=== PATIENT | male | born 1985 | race Caucasian/White ===

== ENCOUNTER 2022-10-19 11:51 | Inpatient (IN) | payer OTHER ==
[~2022-10-19] VITALS: Ht 180.3 cm; Wt 102.1 kg
[2022-10-19 12:26] LABS: CLARITY,URINE SLIGHTLY CLOUDY (Clear); COLOR,URINE YELLOW (Yellow); GLUCOSE, URINE NEGATIVE (Neg); KETONES,URINE TRACE mg/dl (Neg); LEUKOCYTE ESTERASE ,URINE NEGATIVE (Neg); NITRITES, URINE NEGATIVE (Neg); OCCULT BLOOD,URINE NEGATIVE (Neg); PROTEIN,URINE NEGATIVE (Neg); UROBILINOGEN,URINE 0.2 E.U/dL (0.2-1.0)
[2022-10-19 12:33] LABS: UA COLLECTION TYPE CLN CATCH MIDSTREAM
[2022-10-19 13:02] LABS: MUCUS STRANDS MANY /LPF (Neg); SQUAMOUS EPITHELIAL CELL,UR FEW /LPF (FEW)
[2022-10-19 13:04] LABS: BACTERIA,URINE 1+ /HPF (Neg); RBC,URINE 0-2 /HPF (0-2); WBC,URINE 0-4 /HPF (0-4)
[2022-10-19 13:19] LABS: ALANINE AMINOTRANSFERASE 36 U/L (12-78); ALBUMIN 3.8 G/DL (3.4-5.0); ALKALINE PHOSPHATASE 75 IU/L (46-116); ANION GAP 8 (8-16); ASPARTATE AMINO TRANSFERASE 21 U/L (10-37); BILIRUBIN,TOTAL 0.6 MG/DL (0.1-1.0); BLOOD UREA NITROGEN 16 MG/DL (7-18); BUN/CREATININE RATIO 19.3 (5.4-32.0); CALCIUM 9.2 MG/DL (8.5-10.1); CHLORIDE 104 MMOL/L (99-107); CREATININE 0.83 MG/DL (0.60-1.10); GLUCOSE 87 MG/DL (70-104); POTASSIUM 3.8 MMOL/L (3.5-5.1); SODIUM 139 MMOL/L (135-145); TOTAL CARBON DIOXIDE 27.4 MMOL/L (24-32); TOTAL PROTEIN 7.7 G/DL (6.4-8.2); eGFR > 90 ML/MIN
[2022-10-19 13:22] LABS: BASOPHILS % (AUTO) 0.6 % (0-1); EOSINOPHILS # (AUTO) 0.6 X10'3 (0-0.9); HEMATOCRIT 45.7 % (42.0-52.0); HEMOGLOBIN 15.4 g/dl (14.0-17.9); LYMPHOCYTES # (AUTO) 1.9 X10'3 (1.1-4.8); LYMPHOCYTES % (AUTO) 24.1 % (21-51); MEAN CORPUSCULAR HGB CONC 33.6 g/dL (33.0-36.5); MEAN CORPUSCULAR VOLUME 89.3 FL (78-98); MEAN PLATELET VOLUME 7.7 FL (7.4-10.4); MONOCYTES # (AUTO) 0.6 X10'3 (0-0.9); NEUTROPHILS # (AUTO) 4.9 X10'3 (1.8-7.7); NEUTROPHILS % (AUTO) 61.3 % (42-75); PLATELET COUNT 294 X10'3 (140-440); RED BLOOD COUNT 5.12 X10'6 (4.70-6.10)
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
[2022-10-19 14:38] LABS: URINE AMPHETAMINE SCREEN POSITIVE (Neg); URINE BARBITUATE SCREEN NEGATIVE (Neg); URINE BENZODIAZEPINES SCREEN NEGATIVE (Neg); URINE CANNABINOID SCREEN NEGATIVE (Neg); URINE COCAINE SCREEN NEGATIVE (Neg); URINE METHADONE SCREEN NEGATIVE (Neg); URINE OPIATE SCREEN NEGATIVE (Neg); URINE PHENCYCLIDINE SCREEN NEGATIVE (Neg)
[2022-10-19] MEDS ORDERED: hydrOXYzine 25 MG tablet PO ONE (15:50)
[2022-10-19] MEDS ORDERED: AMPH25CA PO (17:02)
[2022-10-19] MEDS ORDERED: AMPH10TA2 PO (17:02)
[2022-10-19] MEDS ORDERED: SEMA1PEN3 SQ (17:02)
[2022-10-19] MEDS ORDERED: PROP20TA6 PO (17:03)
[2022-10-19] MEDS ORDERED: MULT-1085 PO (17:07)
[2022-10-19] MEDS ORDERED: CETI-90 PO (17:07)
[2022-10-19] MEDS ORDERED: OMEG-5 PO (17:07)
[2022-10-19] MEDS ORDERED: CHOL50004 PO (17:07)
[2022-10-19] MEDS ORDERED: ELDE350C PO (17:07)
[2022-10-19] MEDS ORDERED: ASCO100T12 PO (17:07)
--- NOTE | 2022-10-19 18:24 | NUR ---
REPORT TO LORENA GARCIA FOR CONTINUATION OF CARE.
--- NOTE | 2022-10-19 21:29 | NUR ---
comfirmation of packet sent to [facility]
--- NOTE | 2022-10-19 21:48 | NUR ---
The patient's mother called and was agitated and demanding that the patient be placed in a psychiatric hospital immediately. Spoke with the patient and he does want his mother involved in his treatment.
[2022-10-19] MEDS ORDERED: Melatonin 3mg tablet PO ONE (21:57)
--- NOTE | 2022-10-20 06:59 | NUR ---
Patient is sleeping in bed. Respirations are even and nonlabored.
--- NOTE | 2022-10-20 08:26 | NUR ---
is here at bedside, offering support to her .
[2022-10-20] MEDS ORDERED: hydrOXYzine 25 MG tablet PO ONE ×2 (10:15→20:38)
[2022-10-20] MEDS ORDERED: propranolol 10mg tablet PO PRN (10:20)
[2022-10-20] MEDS ORDERED: DEXTROAMPHETAMINE PO SCH ×2 (10:34→10:49)
[2022-10-20] MEDS ORDERED: AMPHETAMINE PO SCH ×2 (10:34→10:49)
[2022-10-20] MEDS: cholecalciferol (vitamin D3) 1,000 unit (25mcg) tablet PO SCH (10:56)
[2022-10-20] MEDS: cetirizine 10mg tablet PO SCH (10:56)
[2022-10-20] MEDS: multivitamins, therapeutics tablet PO SCH (10:56)
[2022-10-20] MEDS: OMEGA-3/DHA/EPA/FISH OIL 1 EACH CAPSULE.DR PO SCH (10:56)
--- NOTE | 2022-10-20 12:32 | NUR ---
[facility], they are going to place him on 5150.
[2022-10-20] MEDS ORDERED: dextroamphetamine/amphetamine 10mg tablet PO SCH (14:00)
--- NOTE | 2022-10-20 14:09 | NUR ---
Received call from [facility]. Patient has been accepted at [facility], patient's notified.
--- NOTE | 2022-10-20 15:03 | NUR ---
Patient is being discharged to [facility] at this time. Patient verifies SI. went home.
[2022-10-20 15:05] VITALS: BP 101/75
[2022-10-20] MEDS ORDERED: loperamide 2mg capsule PO PRN (15:20)
[2022-10-20] MEDS ORDERED: magnesium hydroxide 30ml (MOM) UD suspension PO PRN (15:20)
[2022-10-20] MEDS ORDERED: acetaminophen 325mg tablet PO PRN ×2 (15:20)
--- NOTE | 2022-10-20 15:31 | NUR ---
Admit note: Pt admitted to Behavioral health today on a 5150 for DTS at 1505 from our ER. Tomi endorses worsening suicidal ideation with several detailed plans to kill himself. Pt has history of depression and ADHD.
--- NOTE | 2022-10-20 16:57 | NUR ---
Vicky Varela [phone] active in pt care, pt allowing release of information to her.
--- NOTE | 2022-10-20 18:17 | NUR ---
Pt approached tech with his plastic fork during dinner, stating "Im not suppose to have this, I thought about using this to hurt myself." Plastic vick removed and diet order updated.
[2022-10-20 20:00] VITALS: BP 102/66
[2022-10-20] MEDS ORDERED: hydrOXYzine 25 MG tablet PO PRN (20:40)
[2022-10-21] MEDS: mag hydrox/Alum hydrox/simeth 30ml oral suspension PO PRN ×2 (00:48→22:08)
--- NOTE | 2022-10-21 05:03 | NUR ---
Progress Note: Problem: Pt admitted to Behavioral health today on a 5150 for DTS at 1505 from our ER. Tomi endorses worsening suicidal ideation with several detailed plans to kill himself. Pt has history of depression and ADHD. Interventions: 1:1 assessment, therapeutic conversation, active listening, ensured contract for safety, medication administration/education/monitoring, behavior monitoring and intervention as needed; anxiety management, provided distraction, redirection, positive reinforcement, and Q 15 minute safety checks. Response: Pt resting in bed at start of shift. Pt refused snack. 1:1 assessment at bedside. Pt denies AH/VH. Pt having SI. When asked how pt is feeling pt states apathetic. When asked why pt states Im angry so much I just want to pain to go away. Pt states he just want to sleep and that is the only time he does not think about killing himself. PRN Atarax, Imodium and Maalox administered for diarrhea this shift. Pt stayed in room all shift and slept through the night. Plan: Pt requires stabilization with medication adjustment and management in a safe and therapeutic environment.
[2022-10-21 08:07] LABS: CHOL/HDL RATIO 4.1 (0.00-4.99); CHOLESTEROL 175 MG/DL (0-200); HDL CHOLESTEROL 43 MG/DL (35-60); LDL CHOLESTEROL 112 MG/DL (50-100); TRIGLYCERIDES 138 MG/DL (20-135)
[2022-10-21] MEDS: cetirizine 10mg tablet PO SCH (08:32)
[2022-10-21] MEDS: multivitamins, therapeutics tablet PO SCH (08:32)
[2022-10-21] MEDS: OMEGA-3/DHA/EPA/FISH OIL 1 EACH CAPSULE.DR PO SCH (08:32)
[2022-10-21] MEDS: cholecalciferol (vitamin D3) 1,000 unit (25mcg) tablet PO SCH (08:32)
[2022-10-21 08:34] LABS: HEMOGLOBIN A1C 4.7 % (4.5-6.2)
[2022-10-21] MEDS: DEXTROAMPHETAMINE PO SCH (09:57)
[2022-10-21] MEDS: AMPHETAMINE PO SCH (09:57)
[2022-10-21] MEDS: dextroamphetamine/amphetamine 5mg tablet PO SCH (14:15)
[2022-10-21] MEDS ORDERED: QUEtiapine 25mg tablet PO ONE ×2 (15:10→15:20)
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
--- NOTE | 2022-10-21 16:52 | NUR ---
Progress Note: Problem: Pt admitted to Behavioral health today on a 5150 for DTS at 1505 from our ER. Tomi endorses worsening suicidal ideation with several detailed plans to kill himself. Pt has history of depression and ADHD. Interventions: 1:1 assessment, therapeutic conversation, active listening, ensured contract for safety, medication administration/education/monitoring, behavior monitoring and intervention as needed; anxiety management, provided distraction, redirection, positive reinforcement, and Q 15 minute safety checks. Response: Patient received resting quietly in bed. Cooperative with assessment and medications. Appears depressed and downcast. Joins his peers for meals in the community room and interacts appropriately with peers and staff. In the morning the patient wears his hair over his face. Has a visitor today which appears to go well. In the afternoon the patient is noted with his hair pulled back. He is guarded with this nurse but spends time talking with the delinquency prevention social worker. Continues to endorse SI related to recent personal stressors. In the afternoon the patient expresses concern that he might hurt himself if left alone in his room and is agreeable to spending time in the observation room. Plan: Pt requires stabilization with medication adjustment and management in a safe and therapeutic environment.
[2022-10-21 20:00] VITALS: BP 106/69
--- NOTE | 2022-10-22 04:09 | NUR ---
Progress Note: Problem: Pt admitted to Behavioral health today on a 5150 for DTS at 1505 from our ER. Tomi endorses worsening suicidal ideation with several detailed plans to kill himself. Pt has history of depression and ADHD. Interventions: 1:1 assessment, therapeutic conversation, active listening, ensured contract for safety, medication administration/education/monitoring, behavior monitoring and intervention as needed; anxiety management, provided distraction, redirection, positive reinforcement, and Q 15 minute safety checks. Response: Pt resting in bed in the observation room at the start of shift. Pt came out for snack. 1:1 assessment at bedside. Pt denies AH/VH. Pt continues to having SI. When asked how he is feeling pt states emotions are getting worse. This RN asked him why he is in the observation room pt states because it is safer for me, I see things all over my room and it gives me ideas I can use as a weapon. PRN Atarax and Maalox administered this shift. Pt stayed in room and came out to ask for PRNs pt slept through the night once he went to bed. Plan: Pt requires stabilization with medication adjustment and management in a safe and therapeutic environment.
[2022-10-22 08:00] VITALS: BP 107/73
[2022-10-22] MEDS: cholecalciferol (vitamin D3) 1,000 unit (25mcg) tablet PO SCH (08:14)
[2022-10-22] MEDS: OMEGA-3/DHA/EPA/FISH OIL 1 EACH CAPSULE.DR PO SCH (08:14)
[2022-10-22] MEDS: cetirizine 10mg tablet PO SCH (08:14)
[2022-10-22] MEDS: multivitamins, therapeutics tablet PO SCH (08:14)
[2022-10-22] MEDS: DEXTROAMPHETAMINE PO SCH (08:52)
[2022-10-22] MEDS: AMPHETAMINE PO SCH (08:52)
[2022-10-22] MEDS ORDERED: QUEtiapine 25mg tablet PO ONE (14:20)
[2022-10-22] MEDS: dextroamphetamine/amphetamine 5mg tablet PO SCH (15:04)
--- NOTE | 2022-10-22 15:19 | NUR ---
Met with Tomi for about an hour. He is still really struggling and having thoughts of harming himself. He reported very poor sleep last night. He reported he has been having thoughts of suicide since Tuesday. He reported he is really struggling and that playing cards or some sort of game helps to distract him. He was tearful at times. He presents with significant distress. Explained 5150 and 5250 process. He reported he should not be placed on voluntary because he would leave and kill himself. Explained brainspotting and suggested we meet again next week and work on his trauma, he was agreeable to this. Called his , Nathalie (ph# [phone]), to check in with her and answer any questions. Asked her to bring in Tomi's chess set at his request. She reported she is going to bring him some belongings and games tomorrow. She is also going to bring his Ozempic rx as it is due tomorrow. LLOYD Treviño
--- NOTE | 2022-10-22 16:51 | NUR ---
Progress Note: Problem: Pt admitted to Behavioral health today on a 5150 for DTS at 1505 from our ER. Tomi endorses worsening suicidal ideation with several detailed plans to kill himself. Pt has history of depression and ADHD. Interventions: 1:1 assessment, therapeutic conversation, active listening, ensured contract for safety, medication administration/education/monitoring, behavior monitoring and intervention as needed; anxiety management, provided distraction, redirection, positive reinforcement, and Q 15 minute safety checks. Response: Patient received resting quietly in bed. Cooperative with assessment and medications. Continues to endorse suicidal ideation. Appears downcast. Wears his hair over his face. Eats meals in the community room and interacts appropriately with staff and peers. Patient states his room change has been helpful for him. Complains that yesterdays Seroquel was ineffective. increases Seroquel which pt tolerates without issue. Plan: Pt requires stabilization with medication adjustment and management in a safe and therapeutic environment.
--- NOTE | 2022-10-22 19:03 | NUR ---
received report. Introduced myself to patient while he was walking in hallway. He spoke in a very quiet voice and would nod or shake his head with communication. Asked if I could do anything for him, no needs at this time. He got a piece of candy from rn hemodialysis charge
[2022-10-22 20:00] VITALS: BP 102/63
[2022-10-22] MEDS: quetiapine 100mg tablet PO SCH (20:14)
[2022-10-22] MEDS: mag hydrox/Alum hydrox/simeth 30ml oral suspension PO PRN (20:23)
--- NOTE | 2022-10-23 01:46 | NUR ---
Progress Note: Problem: Pt admitted to Behavioral health today on a 5150 for DTS at 1505 from our ER. Tomi endorses worsening suicidal ideation with several detailed plans to kill himself. Pt has history of depression and ADHD. Interventions: 1:1 assessment, therapeutic conversation, active listening, ensured contract for safety, medication administration/education/monitoring, behavior monitoring and intervention as needed; anxiety management, provided distraction, redirection, positive reinforcement, and Q 15 minute safety checks. Response: Cooperative with assessment and medications. Appears downcast. Wears his hair over his face. Interacts appropriately with staff and peers. Complains of indigestion, Maalox administered Plan: Pt requires stabilization with medication adjustment and management in a safe and therapeutic environment.
[2022-10-23 07:27] VITALS: BP 103/67
[2022-10-23] MEDS ORDERED: SEMAGLUTIDE 1 MG/0.75 ML SQ SCH (08:00)
[2022-10-23] MEDS: DEXTROAMPHETAMINE PO SCH (08:28)
[2022-10-23] MEDS: OMEGA-3/DHA/EPA/FISH OIL 1 EACH CAPSULE.DR PO SCH (08:28)
[2022-10-23] MEDS: AMPHETAMINE PO SCH (08:28)
[2022-10-23] MEDS: cholecalciferol (vitamin D3) 1,000 unit (25mcg) tablet PO SCH (08:28)
[2022-10-23] MEDS: cetirizine 10mg tablet PO SCH (08:29)
[2022-10-23] MEDS: multivitamins, therapeutics tablet PO SCH (08:29)
[2022-10-23] MEDS: sertraline 50mg tablet PO SCH (08:29)
--- NOTE | 2022-10-23 09:56 | NUR ---
Initial: Pt admit with depression with SI. Currently on a regular diet and eating well, documented with 100% PO intake meeting estimated nutrient needs. LBM 10/22, documented with diarrhea. Pt receiving Imodium PRN. No nutrition intervention implemented at this time. Will continue to follow. Recommendations: 1) Continue regular diet 2) Bowel care PRN 3) Weekly scaled weights Addendum: 10/23/22 at [address] Amended: Links added.
[2022-10-23] MEDS: dextroamphetamine/amphetamine 5mg tablet PO SCH (14:00)
--- NOTE | 2022-10-23 17:05 | NUR ---
Progress Note: Problem: Pt admitted to Behavioral health today on a 5150 for DTS at 1505 from our ER. Tomi endorses worsening suicidal ideation with several detailed plans to kill himself. Pt has history of depression and ADHD. Interventions: 1:1 assessment, therapeutic conversation, active listening, ensured contract for safety, medication administration/education/monitoring, behavior monitoring and intervention as needed; anxiety management, provided distraction, redirection, positive reinforcement, and Q 15 minute safety checks. Response: Patient received resting quietly in bed. Cooperative with assessment and medications. Eats meals in the community room and interacts appropriately with staff and peers. Continues to endorse feeling of depression and thoughts of suicide. 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 Plan: Pt requires stabilization with medication adjustment and management in a safe and therapeutic environment.
[2022-10-23 19:44] VITALS: BP 126/82
[2022-10-23] MEDS: mag hydrox/Alum hydrox/simeth 30ml oral suspension PO PRN (20:14)
[2022-10-23] MEDS: quetiapine 100mg tablet PO SCH (20:14)
--- NOTE | 2022-10-24 00:25 | NUR ---
Progress Note: Problem: Pt admitted to Behavioral health today on a 5150 for DTS at 1505 from our ER. Tomi endorses worsening suicidal ideation with several detailed plans to kill himself. Pt has history of depression and ADHD. Interventions: 1:1 assessment, therapeutic conversation, active listening, ensured contract for safety, medication administration/education/monitoring, behavior monitoring and intervention as needed; anxiety management, provided distraction, redirection, positive reinforcement, and Q 15 minute safety checks. Response: Pt up in group room at start of shift. Having an animated conversation with a female pt. He describes his day as "so-so" He says when he leaves here he will either go home or end his life. He still has a plan for Suicide. He says the medications he is getting here are helping him feel better because they help him sleep. Took his HS Seroquel and PRN Maalox. He agreed to let staff know if he has problems sleeping. Pt sleeping at this time. Plan: Pt requires stabilization with medication adjustment and management in a safe and therapeutic environment.
[2022-10-24 08:01] VITALS: BP 93/57
[2022-10-24] MEDS: multivitamins, therapeutics tablet PO SCH (08:08)
[2022-10-24] MEDS: cetirizine 10mg tablet PO SCH (08:08)
[2022-10-24] MEDS: sertraline 50mg tablet PO SCH (08:08)
[2022-10-24] MEDS: cholecalciferol (vitamin D3) 1,000 unit (25mcg) tablet PO SCH (08:08)
[2022-10-24] MEDS: OMEGA-3/DHA/EPA/FISH OIL 1 EACH CAPSULE.DR PO SCH (08:08)
[2022-10-24] MEDS: DEXTROAMPHETAMINE PO SCH (08:49)
[2022-10-24] MEDS: AMPHETAMINE PO SCH (08:49)
[2022-10-24] MEDS: cloNIDine 0.1 mg tablet PO PRN ×2 (14:19→20:22)
[2022-10-24] MEDS: dextroamphetamine/amphetamine 5mg tablet PO SCH (14:19)
[2022-10-24] MEDS ORDERED: sertraline 25mg tablet PO ONE (15:45)
--- NOTE | 2022-10-24 18:09 | NUR ---
Nursing Progress Note: Problem: Pt admitted to Behavioral health today on a 5150 for DTS at 1505 from our ER. Tomi endorses worsening suicidal ideation with several detailed plans to kill himself. Pt has history of depression and ADHD. Interventions: 1:1 assessment, therapeutic conversation, active listening, ensured contract for safety, medication administration/education/monitoring, behavior monitoring and intervention as needed; anxiety management, provided distraction, redirection, positive reinforcement, and Q 15 minute safety checks. Response: Patient received resting quietly in bed. Cooperative with assessment and medications. Eats meals in the community room and interacts appropriately with staff and peers. Continues to endorse feelings of depression and SI. Complains of increased anxiety in the afternoon. PRN Clonidine is given with good effect. Patient also spends time talking to one of his peers which he verbalizes was helpful for his anxiety. Patient visits with his during visitation which appears to go well. Patient is noted playing games and watching movies in the community room for most of the day. Plan: Pt requires stabilization with medication adjustment and management in a safe and therapeutic environment.
[2022-10-24 20:00] VITALS: BP 126/82
[2022-10-24] MEDS: quetiapine 100mg tablet PO SCH (20:16)
[2022-10-24] MEDS: mag hydrox/Alum hydrox/simeth 30ml oral suspension PO PRN (20:16)
--- NOTE | 2022-10-25 01:42 | NUR ---
Nursing Progress Note: Problem: Pt admitted to Behavioral health today on a 5150 for DTS at 1505 from our ER. Tomi endorses worsening suicidal ideation with several detailed plans to kill himself. Pt has history of depression and ADHD. Interventions: 1:1 assessment, therapeutic conversation, active listening, ensured contract for safety, medication administration/education/monitoring, behavior monitoring and intervention as needed; anxiety management, provided distraction, redirection, positive reinforcement, and Q 15 minute safety checks. Response: Tomi up on unit at start of shift. He was very concerned when another pt moved into his room. The other pt was agitated but medicated and became calmer. Staff reassured Tomi that he was close to the Nurses Station and staff would frequently monitor the situation. He was encouraged to report any problems to staff. Tomi was satisfied went to group room and read aloud to other pts. He did not report any further problems with his new roommate. He said he had a good day. He is using some "tools" to distract himself from thinking about suicide. Took HS meds and PRN Clonidine. Sleeping at this time. Plan: Pt requires stabilization with medication adjustment and management in a safe and therapeutic environment.
[2022-10-25 07:12] VITALS: BP 97/59
[2022-10-25] MEDS: AMPHETAMINE PO SCH (08:19)
[2022-10-25] MEDS: sertraline 50mg tablet PO SCH (08:19)
[2022-10-25] MEDS: OMEGA-3/DHA/EPA/FISH OIL 1 EACH CAPSULE.DR PO SCH (08:19)
[2022-10-25] MEDS: multivitamins, therapeutics tablet PO SCH (08:19)
[2022-10-25] MEDS: DEXTROAMPHETAMINE PO SCH (08:19)
[2022-10-25] MEDS: cholecalciferol (vitamin D3) 1,000 unit (25mcg) tablet PO SCH (08:19)
[2022-10-25] MEDS: cetirizine 10mg tablet PO SCH (08:20)
[2022-10-25] MEDS: cloNIDine 0.1 mg tablet PO PRN ×2 (12:17→18:45)
--- NOTE | 2022-10-25 13:57 | NUR ---
Nursing Progress Note: Problem: Pt admitted to Behavioral health today on a 5150 for DTS at 1505 from our ER. Tomi endorses worsening suicidal ideation with several detailed plans to kill himself. Pt has history of depression and ADHD. Interventions: 1:1 assessment, therapeutic conversation, active listening, ensured contract for safety, medication administration/education/monitoring, behavior monitoring and intervention as needed; anxiety management, provided distraction, redirection, positive reinforcement, and Q 15 minute safety checks. Response: Patient received resting quietly in bed. Cooperative with assessment and medications. Continues to endorse feelings of depression and suicidal ideation. Joins his peers in the community room for meals and interacts appropriately. Noted playing games and watching TV with peers. Socializes with select peers. Visits with his during visitation which appears to go well. PRN Clonidine given for anxiety with good effect. Plan: Pt requires stabilization with medication adjustment and management in a safe and therapeutic environment.
[2022-10-25] MEDS: dextroamphetamine/amphetamine 5mg tablet PO SCH (14:24)
[2022-10-25] MEDS: mag hydrox/Alum hydrox/simeth 30ml oral suspension PO PRN (17:52)
[2022-10-25 19:42] VITALS: BP 128/79
[2022-10-25] MEDS: quetiapine 100mg tablet PO SCH (21:58)
--- NOTE | 2022-10-26 00:55 | NUR ---
Nursing Progress Note: Problem: Pt admitted to Behavioral health today on a 5150 for DTS at 1505 from our ER. Tomi endorses worsening suicidal ideation with several detailed plans to kill himself. Pt has history of depression and ADHD. Interventions: 1:1 assessment, therapeutic conversation, active listening, ensured contract for safety, medication administration/education/monitoring, behavior monitoring and intervention as needed; anxiety management, provided distraction, redirection, positive reinforcement, and Q 15 minute safety checks. Response: Pt in Group room playing [email or web address] with another pt at start of shift. He stayed in group room playing games and then reading aloud to another pt until he went to bed. PRN Clonidine given Per his request for anxiety with good effect. Pt is knowledgeable about his medications and his MDs plan to adjust them. Pts roommate became loud and agitated the pt was able to deal with it without becoming upset. Pt is sleeping at this time. Plan: Pt requires stabilization with medication adjustment and management in a safe and therapeutic environment.
[2022-10-26 07:55] VITALS: BP 108/72
[2022-10-26] MEDS: sertraline 50mg tablet PO SCH (08:05)
[2022-10-26] MEDS: cholecalciferol (vitamin D3) 1,000 unit (25mcg) tablet PO SCH (08:05)
[2022-10-26] MEDS: DEXTROAMPHETAMINE PO SCH (08:05)
[2022-10-26] MEDS: OMEGA-3/DHA/EPA/FISH OIL 1 EACH CAPSULE.DR PO SCH (08:05)
[2022-10-26] MEDS: AMPHETAMINE PO SCH (08:05)
[2022-10-26] MEDS: multivitamins, therapeutics tablet PO SCH (08:05)
[2022-10-26] MEDS: cetirizine 10mg tablet PO SCH (08:05)
[2022-10-26 08:50] VITALS: BP 108/72
[2022-10-26] MEDS: dextroamphetamine/amphetamine 5mg tablet PO SCH (13:31)
--- NOTE | 2022-10-26 14:05 | NUR ---
Met with Tomi to do a session of brainspotting regarding some recent events that triggered this most recent episode. Ct reported he is feeling a bit better today. He reported he has been getting more sleep which has been helpful. Will meet with Tomi again tomorrow. LLOYD Treviño
--- NOTE | 2022-10-26 15:48 | NUR ---
Therapeutic group Description: Daily therapeutic groups support [facility] crisis-recovery environment. Topic: reading empowering poems, creating word collages/poems about empowerment. Group discussion veered into peer discussion of the dangers of using meth when you have a mental illness. One new peer was disruptive, and this report writer will conduct a structured, directive activities-based group tomorrow. Intervention: Therapeutic communication, peer support, validation by peers, coping skills and psychosocial education. Secondarily, intellectual and physical activity, peer, and staff companionship, alleviating and discouraging isolation. Response: Client engaged intelligently and appropriately in explanations about how and why stimulants, like meth, are addictive and eventually destructive. Treatment Until stable, client requires time in a safe and therapeutic environment employing multidisciplinary treatments, including therapeutic groups.
[2022-10-26] MEDS: cloNIDine 0.1 mg tablet PO PRN (16:01)
[2022-10-26 16:02] VITALS: BP 117/73
--- NOTE | 2022-10-26 17:41 | NUR ---
NURSING PROGRESS NOTE Problem: Pt admitted to Behavioral health today on a 5150 for DTS at 1505 from our ER. Tomi endorses worsening suicidal ideation with several detailed plans to kill himself. Pt has history of depression and ADHD. Interventions: 1:1 assessment, therapeutic conversation, active listening, ensured contract for safety, medication administration/education/monitoring, behavior monitoring and intervention as needed; anxiety management, provided distraction, redirection, positive reinforcement, and Q 15 minute safety checks. Response: Received patient awake in his room at shift change. Pt reported a rough night. Pt reports the person in the next room had been causing a loud disturbance, which caused increased anxiety and restless sleep. Pt stated he had to request additional medication the PRNs werent touching it. Pt states I am bummed, that I let someone else have power over me. Pt was visible on unit socializing with peers playing cards and talking. Later in afternoon pt requested PRN Clonidine, pt didnt appear anxious. Pt reported PRN was effective. Plan: Pt requires stabilization with medication adjustment and management in a safe and therapeutic environment.
[2022-10-26 20:00] VITALS: BP 108/71
[2022-10-26] MEDS: quetiapine 100mg tablet PO SCH (20:52)
--- NOTE | 2022-10-27 05:23 | NUR ---
Nursing Progress Note: Problem: Pt admitted to Behavioral health today on a 5150 for DTS at 1505 from our ER. Tomi endorses worsening suicidal ideation with several detailed plans to kill himself. Pt has history of depression and ADHD. Interventions: 1:1 assessment, therapeutic conversation, active listening, ensured contract for safety, medication administration/education/monitoring, behavior monitoring and intervention as needed; anxiety management, provided distraction, redirection, positive reinforcement, and Q 15 minute safety checks. Response: Received patient awake in the community room at shift change w/peers. Patient walked the luna briefly before going back into the community room. During medication administration patient is observed sitting in community room reading a book to peers. Took all medications fine. No complaints from patient. He is sleeping during this time. Slept through the night. Plan: Pt requires stabilization with medication adjustment and management in a safe and therapeutic environment.
[2022-10-27 08:00] VITALS: BP 101/69
[2022-10-27] MEDS: OMEGA-3/DHA/EPA/FISH OIL 1 EACH CAPSULE.DR PO SCH (08:01)
[2022-10-27] MEDS: multivitamins, therapeutics tablet PO SCH (08:02)
[2022-10-27] MEDS: sertraline 50mg tablet PO SCH (08:02)
[2022-10-27] MEDS: cholecalciferol (vitamin D3) 1,000 unit (25mcg) tablet PO SCH (08:02)
[2022-10-27] MEDS: cetirizine 10mg tablet PO SCH (08:02)
[2022-10-27] MEDS: cloNIDine 0.1 mg tablet PO PRN ×2 (08:58→20:10)
[2022-10-27] MEDS: DEXTROAMPHETAMINE PO SCH (09:17)
[2022-10-27] MEDS: AMPHETAMINE PO SCH (09:17)
[2022-10-27] MEDS: dextroamphetamine/amphetamine 5mg tablet PO SCH (13:29)
--- NOTE | 2022-10-27 14:05 | NUR ---
Completed Brainspotting session with Tomi regarding fear and anxiety. He had a reduction in anxiety at the end. Tomi reported he is still experiencing suicidal ideation, however, he has committed to not harm himself today. LLOYD Treviño
--- NOTE | 2022-10-27 17:26 | NUR ---
Nursing Progress Note: Problem: Pt admitted to Behavioral health today on a 5150 for DTS at 1505 from our ER. Tomi endorses worsening suicidal ideation with several detailed plans to kill himself. Pt has history of depression and ADHD. Interventions: Provide medication administration & medication management; Maintained a safe & supportive environment; Clear & simple instructions; Direction & encouragement regarding performance of ADLs; monitored behaviors & maintained clear boundaries; Patient physical assessment & 1:1 patient interview; Therapeutic conversation & active listening; Patient education & monitoring. Response: Received patient when he was woke up at 0750 to administer his 0800 medications. Patient was pleasant and reported no AV/VH at this time. When asked about suicidal ideation, patient reported I am making choices today, and I m choosing not to kill myself today. Patient took his medications without hesitation. Patient participated in meals & snack times. Patient was very cordial with peers and took a brief nap after the 1100 snack break. Patient has been ambulating multiple laps in the hallway most of the day. Patient received Catapres at 0858 for c/o anxiety with relief. Plan: Pt requires stabilization with medication adjustment and management in a safe and therapeutic environment.
[2022-10-27 19:56] VITALS: BP 114/74
[2022-10-27] MEDS: quetiapine 100mg tablet PO SCH (21:13)
--- NOTE | 2022-10-27 23:55 | NUR ---
Nursing Progress Note: Problem: Pt admitted to Behavioral health today on a 5150 for DTS at 1505 from our ER. Tomi endorses worsening suicidal ideation with several detailed plans to kill himself. Pt has history of depression and ADHD. Interventions: 1:1 assessment, therapeutic conversation, active listening, ensured contract for safety, medication administration/education/monitoring, behavior monitoring and intervention as needed; anxiety management, provided distraction, redirection, positive reinforcement, and Q 15 minute safety checks. Response: Recieved patient awake during shift change. During 1:1 patient denied SI, HI, AH/VH. Patient reports persisting feelings of depression. Patient socialized most of the evening in community room w/peers. Patient took all evening medications without any problem. Requested PRN clonidine. Ate snack in community room. Read a book out loud to peers. Went to bed shortly after. Plan: Pt requires stabilization with medication adjustment and management in a safe and therapeutic environment.
[2022-10-28 08:00] VITALS: BP 96/58
[2022-10-28] MEDS: cetirizine 10mg tablet PO SCH (08:19)
[2022-10-28] MEDS: sertraline 50mg tablet PO SCH (08:19)
[2022-10-28] MEDS: cholecalciferol (vitamin D3) 1,000 unit (25mcg) tablet PO SCH (08:19)
[2022-10-28] MEDS: DEXTROAMPHETAMINE PO SCH (08:19)
[2022-10-28] MEDS: OMEGA-3/DHA/EPA/FISH OIL 1 EACH CAPSULE.DR PO SCH (08:19)
[2022-10-28] MEDS: AMPHETAMINE PO SCH (08:19)
[2022-10-28] MEDS: multivitamins, therapeutics tablet PO SCH (08:19)
[2022-10-28] MEDS: dextroamphetamine/amphetamine 5mg tablet PO SCH (14:30)
[2022-10-28 15:56] VITALS: BP 111/78
[2022-10-28] MEDS: cloNIDine 0.1 mg tablet PO PRN (15:57)
--- NOTE | 2022-10-28 17:16 | NUR ---
Nursing Progress Note: Problem: Pt admitted to Behavioral health today on a 5150 for DTS at 1505 from our ER. Tomi endorses worsening suicidal ideation with several detailed plans to kill himself. Pt has history of depression and ADHD. Interventions: 1:1 assessment, establishment of rapport, ensured contract for safety, therapeutic conversation, active listening, medication administration/education/monitoring, distraction, positive reinforcement, and Q15 minute safety checks. Response: Pt was up before breakfast in the dining room socializing with peers. Pt was pleasant and cooperative with his medications. Pt spent all day out in the milieu interacting with peers and participating in groups and unit activities. Pt was observed standing in front of the group speaking to peers in a manner that looked as though he were leading the group. Pt told this RN that he has been doing CBT with SRIDHAR Sharon and wanted to share this with the group. Pt continues to endorse depression with SI though states that he is making the choice to live today. Pt is insightful. Protective mechanisms and factors were discussed but pt made an analogy about acute mental pain being like acute physical pain; when it is bad you just want to . Pt described having stomach pain so bad one time that he wanted to . He was given Dilaudid, felt better and did not want to . Pt stated that we were his Dilaudid today. Pt did c/o increased anxiety after talking to Sharon about some things and requested Clonidine. Pt was given PRN Clonidine 0.1 mg at 1157 with good effect. Plan: Pt requires stabilization with medication adjustment and management in a safe and therapeutic environment until stable to return home to his family.
[2022-10-28 20:00] VITALS: BP 118/74
[2022-10-28] MEDS: quetiapine 100mg tablet PO SCH (21:17)
--- NOTE | 2022-10-29 04:57 | NUR ---
Nursing Progress Note: Problem: Pt admitted to Behavioral health today on a 5150 for DTS at 1505 from our ER. Tomi endorses worsening suicidal ideation with several detailed plans to kill himself. Pt has history of depression and ADHD. Interventions: 1:1 assessment, establishment of rapport, ensured contract for safety, therapeutic conversation, active listening, medication administration/education/monitoring, distraction, positive reinforcement, and Q15 minute safety checks. Response: Patient was received sitting in community room talking and reading to other patients. Patient was found convincing other patients to refuse certain medications. Patient took all night medications with out issue except for having to be told multiple times to separate from other patient due to inappropriate touching and hand holding. Patient participate in snack and was collecting a group of patients reading to them and giving advice. Patient eventually left community room and proceeded to library clerk talking books hallway watching roommates go off on staff and other patients. Patient was encouraged to go i not room and get out of active area. Patient eventually went to bed. Plan: Pt requires stabilization with medication adjustment and management in a safe and therapeutic environment until stable to return home to his family.
[2022-10-29 07:30] VITALS: BP 90/60
[2022-10-29] MEDS: sertraline 50mg tablet PO SCH (08:11)
[2022-10-29] MEDS: multivitamins, therapeutics tablet PO SCH (08:11)
[2022-10-29] MEDS: cetirizine 10mg tablet PO SCH (08:11)
[2022-10-29] MEDS: OMEGA-3/DHA/EPA/FISH OIL 1 EACH CAPSULE.DR PO SCH (08:11)
[2022-10-29] MEDS: DEXTROAMPHETAMINE PO SCH (08:12)
[2022-10-29] MEDS: AMPHETAMINE PO SCH (08:12)
[2022-10-29] MEDS: cholecalciferol (vitamin D3) 1,000 unit (25mcg) tablet PO SCH (08:12)
[2022-10-29] MEDS: dextroamphetamine/amphetamine 5mg tablet PO SCH (13:07)
[2022-10-29] MEDS: mag hydrox/Alum hydrox/simeth 30ml oral suspension PO PRN (13:09)
[2022-10-29] MEDS: cloNIDine 0.1 mg tablet PO PRN (13:10)
[2022-10-29 13:15] VITALS: BP 106/72
--- NOTE | 2022-10-29 15:33 | NUR ---
Nursing Progress Note: Problem: Pt admitted to Behavioral health today on a 5150 for DTS at 1505 from our ER. Tomi endorses worsening suicidal ideation with several detailed plans to kill himself. Pt has history of depression and ADHD. Interventions: 1:1 assessment, ensured contract for safety, therapeutic conversation, active listening, medication administration/education/monitoring, distraction, positive reinforcement, limit setting, maintained appropriate boundaries, and Q15 minute safety checks. Response: Pt was up for breakfast in the dining room. Pt reported, "I'm fucking tired, (roommate) kept me up last nite." Pt stated that he was considering not taking his ADHD med today because he needs some sleep. This RN mentioned how usually Adderall is calming for people who have ADHD. Pt appeared to think for a moment then said, "oh yeah, that's me, I'll take it." Around 0915, a female peer (the one reported by magdiel lowery with whom he had been holding hands with last night) approached this RN to stated that Tomi was requesting to sleep in the seclusion room. She and Tomi were told that this would not be possible today as it was likely we may need the room for other purposes today. Pt appeared unhappy with this and was seen walking around the unit for awhile with his head hanging down. Pt approached this RN to request PRN clonidine for anxiety and Maalox as "that meat messed me up." Pt was given the Maalox but was unable to receive the clonidine due to his BP being lower than indicated parameters. Parameters state to hold med for BP < 110. Pt stated that his systolic BP usually runs in around 95 all the time. Pt appeared dissatisfied with not being given the clonidine. He stated that he would speak with whoever was filling in for Dr Boudreaux today to get an exception. Pt educated on the effects of clonidine on the blood pressure and on the risks of hypotension. Pt did perk up in the afternoon and attended afternoon group. Pt carries around a small chess set on the waist of his pants. Plan: Pt requires stabilization with medication adjustment and management in a safe and therapeutic environment until stable to return home to his family.
[2022-10-29 19:00] VITALS: BP 118/78
[2022-10-29] MEDS ORDERED: traZODone 50mg tablet PO PRN (19:05)
[2022-10-29 20:20] VITALS: BP 118/78
[2022-10-29] MEDS: quetiapine 100mg tablet PO SCH (20:50)
--- NOTE | 2022-10-30 04:49 | NUR ---
Nursing Progress Note: Problem: Pt admitted to Behavioral health today on a 5150 for DTS at 1505 from our ER. Tomi endorses worsening suicidal ideation with several detailed plans to kill himself. Pt has history of depression and ADHD. Interventions: 1:1 assessment, ensured contract for safety, therapeutic conversation, active listening, medication administration/education/monitoring, distraction, positive reinforcement, limit setting, maintained appropriate boundaries, and Q15 minute safety checks. Response: Patient was observed sitting in community room at beginning of shift. Patient was asked to come see nurse and patient refused stating she knows where to find me. Patient was later found sitting in a levelock with other patients, crying due to what patient was reading. Patient was seen holding hands with another patient and inappropriate touching. Patient was also seen antagonizing roommate adding to already explosive environment. Patient took all night medications and later requested prn trazodone. Patient had convinced other patients to not take necessary medications. Plan: Pt requires stabilization with medication adjustment and management in a safe and therapeutic environment until stable to return home to his family.
[2022-10-30 07:36] VITALS: BP 91/60
[2022-10-30] MEDS: cetirizine 10mg tablet PO SCH (07:46)
[2022-10-30] MEDS: OMEGA-3/DHA/EPA/FISH OIL 1 EACH CAPSULE.DR PO SCH (07:46)
[2022-10-30] MEDS: sertraline 50mg tablet PO SCH (07:46)
[2022-10-30] MEDS: multivitamins, therapeutics tablet PO SCH (07:46)
[2022-10-30] MEDS: cholecalciferol (vitamin D3) 1,000 unit (25mcg) tablet PO SCH (07:47)
[2022-10-30 07:49] VITALS: BP 91/60
[2022-10-30] MEDS: AMPHETAMINE PO SCH (08:00)
[2022-10-30] MEDS: DEXTROAMPHETAMINE PO SCH (08:00)
--- NOTE | 2022-10-30 11:52 | NUR ---
Nursing Progress Note: Problem: Pt admitted to Behavioral health today on a 5150 for DTS at 1505 from our ER. Tomi endorses worsening suicidal ideation with several detailed plans to kill himself. Pt has history of depression and ADHD. Interventions: Provided 1:1 assessment, provided safe and supportive environment, ensured contract for safety, provided medications as ordered, education provided to medications as needed, limit setting, maintained appropriate boundaries, monitored Q15 minute safety checks. Response: Pt reports, "I am no longer suicidal and I am ready to go home as planned on Tuesday." Pt spent the day in the dayroom reading a book to peers and discussing behavioral health and playing chess with peers. Pt's came to see him and another gentleman. Pt reminded there is no touching peers and to sit in his own chair and not side by side with a female pt. Plan: Pt has been told he will discharge on Tuesday home.
[2022-10-30] MEDS: dextroamphetamine/amphetamine 5mg tablet PO SCH (13:40)
[2022-10-30 19:21] VITALS: BP 119/78
[2022-10-30] MEDS: quetiapine 100mg tablet PO SCH (19:54)
[2022-10-30] MEDS: cloNIDine 0.1 mg tablet PO PRN (19:58)
[2022-10-30] MEDS: mag hydrox/Alum hydrox/simeth 30ml oral suspension PO PRN (22:49)
--- NOTE | 2022-10-31 04:56 | NUR ---
Nursing Progress Note: Problem: Pt admitted to Behavioral health today on a 5150 for DTS at 1505 from our ER. Tomi endorses worsening suicidal ideation with several detailed plans to kill himself. Pt has history of depression and ADHD. Interventions: Provided 1:1 assessment, provided safe and supportive environment, ensured contract for safety, provided medications as ordered, education provided to medications as needed, limit setting, maintained appropriate boundaries, monitored Q15 minute safety checks. Response: Patient was received sitting in community room playing games with other patient. Patient asked nurse for prn Elijah for anxiety before returning to community room. Patient stayed up till midnight in the community room waiting for the ball to drop and socializing with other patients and staff. Patient took breaks to walk around unit. After ball drop patient sat in front of window to watch fireworks before going to bed. Patient took all night medications without issue. Plan: Pt has been told he will discharge on Tuesday home.
[2022-10-31 08:40] VITALS: BP 98/57
[2022-10-31] MEDS: cholecalciferol (vitamin D3) 1,000 unit (25mcg) tablet PO SCH (08:43)
[2022-10-31] MEDS: sertraline 50mg tablet PO SCH (08:43)
[2022-10-31] MEDS: OMEGA-3/DHA/EPA/FISH OIL 1 EACH CAPSULE.DR PO SCH (08:43)
[2022-10-31] MEDS: cetirizine 10mg tablet PO SCH (08:43)
[2022-10-31] MEDS: multivitamins, therapeutics tablet PO SCH (08:43)
[2022-10-31] MEDS: AMPHETAMINE PO SCH (09:12)
[2022-10-31] MEDS: DEXTROAMPHETAMINE PO SCH (09:12)
[2022-10-31] MEDS: dextroamphetamine/amphetamine 5mg tablet PO SCH (14:28)
--- NOTE | 2022-10-31 15:27 | NUR ---
Nursing Progress Note: Problem: Pt admitted to Behavioral health today on a 5150 for DTS at 1505 from our ER. Tomi endorses worsening suicidal ideation with several detailed plans to kill himself. Pt has history of depression and ADHD. Interventions: Provided 1:1 assessment, provided safe and supportive environment, ensured contract for safety, provided medications as ordered, education provided to medications as needed, limit setting, maintained appropriate boundaries, monitored Q15 minute safety checks. Response: 1:1 done and medications administered with no issues. Pt denies S/HI as well as A/VH. Pt was appropriate and friendly with nurse. Pt attended meals and was social with peers. Pt seen walking the halls reading a book. Tomi feels he is ready to discharge either Tuesday or Tuesday but still has some things to work on till then, mentioning DBT and helping teach his peers about this, stating teaching helps him learn. Plan: Pt has been told he will discharge on Tuesday home
[2022-10-31 19:24] VITALS: BP 121/79
[2022-10-31] MEDS: quetiapine 100mg tablet PO SCH (21:27)
--- NOTE | 2022-10-31 22:12 | NUR ---
Nursing Progress Note: Problem: Pt admitted to Behavioral health today on a 5150 for DTS at 1505 from our ER. Tomi endorses worsening suicidal ideation with several detailed plans to kill himself. Pt has history of depression and ADHD. Interventions: Provided 1:1 assessment, provided safe and supportive environment, ensured contract for safety, provided medications as ordered, education provided to medications as needed, limit setting, maintained appropriate boundaries, monitored Q15 minute safety checks. Response: Pt was socializing with peers at change of shift. Pt denies s/i. Pt states he thinks he will be ready to go Tuesday, but would like his notified of his discharge time so she can be here to assist him with his belongings when he leaves. Pt states he wants to stay until he can speak with Dr. Herrera because he wants to discuss his follow up care, and possibly set up "therapeutics such as brain spotting appointments" when he leaves. Pt had snacks with peers and states he would like to thank staff for the care he received here. Pt requested prn Clonodine for agitation prior to taking his HS meds. Pt took HS meds and went to bed a short time later. Plan: Pt has been told he will discharge on Tuesday home
[2022-11-01 08:00] VITALS: BP 99/61
[2022-11-01] MEDS: cetirizine 10mg tablet PO SCH (08:01)
[2022-11-01] MEDS: OMEGA-3/DHA/EPA/FISH OIL 1 EACH CAPSULE.DR PO SCH (08:01)
[2022-11-01] MEDS: cholecalciferol (vitamin D3) 1,000 unit (25mcg) tablet PO SCH (08:01)
[2022-11-01] MEDS: multivitamins, therapeutics tablet PO SCH (08:02)
[2022-11-01] MEDS: DEXTROAMPHETAMINE PO SCH (08:02)
[2022-11-01] MEDS: AMPHETAMINE PO SCH (08:02)
[2022-11-01] MEDS: sertraline 50mg tablet PO SCH (08:02)
[2022-11-01] MEDS: dextroamphetamine/amphetamine 5mg tablet PO SCH (13:05)
[2022-11-01] MEDS: mag hydrox/Alum hydrox/simeth 30ml oral suspension PO PRN (13:25)
[2022-11-01] MEDS: cloNIDine 0.1 mg tablet PO PRN ×2 (14:37→21:59)
--- NOTE | 2022-11-01 15:27 | NUR ---
Nursing Progress Note: Problem: Pt admitted to Behavioral health today on a 5150 for DTS at 1505 from our ER. Tomi endorses worsening suicidal ideation with several detailed plans to kill himself. Pt has history of depression and ADHD. Interventions: Provided 1:1 assessment, provided safe and supportive environment, ensured contract for safety, provided medications as ordered, education provided to medications as needed, limit setting, maintained appropriate boundaries, monitored Q15 minute safety checks. Response: Pt resting in bed at change of shift, appeared to be sleeping. Pt awoke at 7:50am walking out of his room with all his hair covering his face and nurse unable to see his eyes. 1:1 done and medications administered. Pt denies S/HI as well as A/VH. Pt attended meals and has been socializing with peers in the community room, doing their work. Pt seen spending time in his room reading a book. Pt went to the patio with staff. Pt. approached nurse requesting his PRN clonidine after he spoke with MARJORIE Marroquin. Pt stated he was utilizing this medication due to feelings of guilt and embarrassment. PRN effective. Plan: Pt has been told he will discharge on Tuesday home
[2022-11-01 20:36] VITALS: BP 129/79
[2022-11-01] MEDS: quetiapine 100mg tablet PO SCH (21:59)
--- NOTE | 2022-11-02 03:34 | NUR ---
Nursing Progress Note: Problem: Pt admitted to Behavioral health today on a 5150 for DTS at 1505 from our ER. Tomi endorses worsening suicidal ideation with several detailed plans to kill himself. Pt has history of depression and ADHD. Interventions: Provided 1:1 assessment, provided safe and supportive environment, ensured contract for safety, provided medications as ordered, education provided to medications as needed, limit setting, maintained appropriate boundaries, monitored Q15 minute safety checks. Response: Reading a book in bed at start of shift. Got up for snack. Walked in luna with two other male pts then watched TV in group room. 1:1 Pt pleasant and cooperative. He denied SI. He talked about his DC tomorrow. He feels he is ready but still has some anxiety. He plans to continue his meds. He also feels he has developed some coping "tools" while he is here. Plan: Pt has been told he will discharge on Tuesday home
[2022-11-02] MEDS: AMPHETAMINE PO SCH (08:02)
[2022-11-02] MEDS: DEXTROAMPHETAMINE PO SCH (08:02)
[2022-11-02] MEDS: cetirizine 10mg tablet PO SCH (08:03)
[2022-11-02] MEDS: sertraline 50mg tablet PO SCH (08:03)
[2022-11-02] MEDS: multivitamins, therapeutics tablet PO SCH (08:03)
[2022-11-02] MEDS: cholecalciferol (vitamin D3) 1,000 unit (25mcg) tablet PO SCH (08:03)
[2022-11-02] MEDS: OMEGA-3/DHA/EPA/FISH OIL 1 EACH CAPSULE.DR PO SCH (08:03)
[2022-11-02 08:56] VITALS: BP 97/60
[2022-11-02] MEDS: dextroamphetamine/amphetamine 5mg tablet PO SCH (13:43)
[2022-11-02] MEDS: cloNIDine 0.1 mg tablet PO PRN ×2 (13:43→21:24)
--- NOTE | 2022-11-02 14:11 | NUR ---
Reassessment: Pt continues eating well, documented with 75-100% PO intake of meals meeting estimated nutrient needs. LBM 11/02. No nutrition intervention implemented at this time. Will continue to follow. Recommendations: 1) Continue regular diet 2) Bowel care PRN 3) Weekly scaled weights Addendum: 11/02/22 at [address] Amended: Links added.
[2022-11-02] MEDS ORDERED: sertraline 50mg tablet PO ONE (15:20)
--- NOTE | 2022-11-02 16:07 | NUR ---
DISCHARGE PLAN Tomi would like to discharge tomorrow. His , Nathalie (ph# [phone]) can pick him up before noon or after 5:30 PM tomorrow. Tomi has follow up scheduled with Dr Herrera at [facility]. He plans on following up with a therapist as well. Encouraged Tomi to NOT maintain any relationships he formed with other patients once he discharges. LLOYD Treviño
--- NOTE | 2022-11-02 16:47 | NUR ---
Nursing Progress Note: Problem: Pt admitted to Behavioral health today on a 5150 for DTS at 1505 from our ER. Tomi endorses worsening suicidal ideation with several detailed plans to kill himself. Pt has history of depression and ADHD. Interventions: Provided 1:1 assessment, provided safe and supportive environment, ensured contract for safety, provided medications as ordered, education provided to medications as needed, limit setting, maintained appropriate boundaries, monitored Q15 minute safety checks. Response: Patient received resting quietly in bed. Joins his peers in the community room and interacts appropriately. Cooperative with 1:1 assessment and medications. In the afternoon the patient is tearful and complains of anxiety related to interactions with another patient. Therapeutic listening is provided and PRN clonidine is given with good effect. Denies any SI/ HI/ AH/ VH. Patient states, Lizette been disassociating. States his days are running together and reality is feeling skewed. Patient appears oriented and speech is linear. Spends most of the day in the community room participating in groups and socializing with peers. Plan: Pt is voluntary and continues to require medication management and monitoring in a therapeutic environment.
[2022-11-02 19:48] VITALS: BP 106/76
[2022-11-02] MEDS: quetiapine 100mg tablet PO SCH (21:24)
[2022-11-02] MEDS: mag hydrox/Alum hydrox/simeth 30ml oral suspension PO PRN (21:27)
--- NOTE | 2022-11-03 00:58 | NUR ---
Nursing Progress Note: Problem: Pt admitted to Behavioral health today on a 5150 for DTS at 1505 from our ER. Tomi endorses worsening suicidal ideation with several detailed plans to kill himself. Pt has history of depression and ADHD. Interventions: Provided 1:1 assessment, provided safe and supportive environment, ensured contract for safety, provided medications as ordered, education provided to medications as needed, limit setting, maintained appropriate boundaries, monitored Q15 minute safety checks. Response: Patient up on unit interacting pleasantly with staff and other pts. Denies any SI/ HI/ AH/ VH. No c/o "disassociating" or problems with reality, as reported on dayshift. He accepts staying another day here because of a medication adjustment and says he is looking forward to discharge tomorrow. Took HS medications plus a Prn Clonidine and went to sleep. Plan: Pt is voluntary and continues to require medication management and monitoring in a therapeutic environment.
[2022-11-03] MEDS ORDERED: TRAZ-251 PO (06:56)
[2022-11-03] MEDS ORDERED: QUET100T34 PO (06:56)
[2022-11-03] MEDS ORDERED: SERT200C PO (06:56)
[2022-11-03] MEDS ORDERED: CLON0.1T2 PO (07:00)
[2022-11-03 07:46] VITALS: BP 96/63
[2022-11-03] MEDS ORDERED: sertraline 50mg tablet PO SCH (08:00)
[2022-11-03] MEDS: cholecalciferol (vitamin D3) 1,000 unit (25mcg) tablet PO SCH (08:29)
[2022-11-03] MEDS: OMEGA-3/DHA/EPA/FISH OIL 1 EACH CAPSULE.DR PO SCH (08:29)
[2022-11-03] MEDS: cetirizine 10mg tablet PO SCH (08:29)
[2022-11-03] MEDS: multivitamins, therapeutics tablet PO SCH (08:30)
[2022-11-03] MEDS: DEXTROAMPHETAMINE PO SCH (08:30)
[2022-11-03] MEDS: AMPHETAMINE PO SCH (08:30)
--- NOTE | 2022-11-03 10:10 | NUR ---
Discharge Note: Paperwork and follow up reviewed with the patient who is agreeable to discharge home to self care. Denies any SI at this time. Escorted off the unit by staff with all of his belongings and pts own med at 10:00 and is picked up by his . Discharged with the following instructions: Follow-Up: Patient has been scheduled/referred to the following providers for post-hospital discharge and aftercare treatment. Psychiatrist: Appointment: 11/25/22 at 2:[address] Herrera [facility] [address] [place], [place] Primary Care Provider: Dr Burnham's nurse will call you to schedule your follow up appointment. [facility] [address] [place] [address] Therapist: You can request a therapist at your appointment with Dr Herrera on 11/25/21. Discharge Address: [address] [place] [address] Transportation: Family Patient given community crisis services information and National suicide hotline handout. Resources for education regarding mental illness: [address] [address] For urgent mental health crisis needs please contact Mobile Crisis Outreach Team Tuesday through Tuesday 8:30am to 5:00pm. . Mobile Crisis Outreach Team [address] [place] [id number] Urgent Out-patient Mental Health Services 365 Days A Year: [address] [address] Hours: Mon thru Fri 12pm-9pm Weekends 11am-9pm
== END 2022-11-03 10:00 | disposition home or self-care (01) | DRG 885 ==
LOC: ER 11:52 → ED HOLD 10-20 14:00 → ADULT MH 10-20 15:09
PROVIDERS: ADMIT Psychiatry & Neurology Psychiatry; ATTEND Psychiatry & Neurology Psychiatry
DX: F33.1 Major depressive disorder, recurrent, moderate (principal); R45.851 Suicidal ideations; Z20.822 Contact with and (suspected) exposure to COVID-19; E11.9 Type 2 diabetes mellitus without complications; F43.10 Post-traumatic stress disorder, unspecified; F90.9 Attention-deficit hyperactivity disorder, unspecified type; Z80.0 Family history of malignant neoplasm of digestive organs
CPT/HCPCS: 36415; 80053; 80061; 80305; 81001; 83036; 83880; 84443; 85025; 87081; 87811; 99285; Q0177